=== PATIENT | female | born 1995 | race American Indian/Alaskan Native ===

== ENCOUNTER 2017-05-05 03:45 | Emergency (ER) | payer MEDICAID ==
[2017-05-05 04:25] VITALS: BP 109/68
== END 2017-05-05 04:24 | disposition left against medical advice (07) ==
LOC: ED 03:45
DX: K08.89 Other specified disorders of teeth and supporting structures (principal); N89.8 Other specified noninflammatory disorders of vagina; Z53.21 Procedure and treatment not carried out due to patient leaving prior to being seen by health care provider

== ENCOUNTER 2018-04-05 21:48 | Outpatient (CLI) | payer SELFPAY ==
[2018-04-05] MEDS ORDERED: LACTATED RINGERS 1,000 ML ONE (23:57)
[2018-04-06 00:04] VITALS: BP 82/52
[2018-04-06] MEDS ORDERED: LACTATED RINGERS 1,000 ML IV ONE ×2 (00:19→02:56)
[2018-04-06 01:03] LABS: Bilirubin,Urine NEG (Negative); Blood,Urine NEG (Negative); Color,Urine Yellow (Yellow); Protein,Urine <15 mg/dL mg/dL (Negative); RBC,Urine < 1.0 /HPF (0.0-6.0)
[2018-04-06] MEDS ORDERED: TYLENOL PO ONE (01:27)
== END 2018-04-06 03:56 | disposition home or self-care (01) ==
LOC: TRG 21:48
PROVIDERS: ATTEND Obstetrics & Gynecology
DX: O26.892 Other specified pregnancy related conditions, second trimester (principal); R51 Headache; Z3A.22 22 weeks gestation of pregnancy
CPT/HCPCS: 81001; 96360; 96361; J7120; 96372; 96374

== ENCOUNTER 2021-01-11 13:34 | Emergency (ER) | payer MEDICAID, OTHER ==
[2021-01-11 13:53] VITALS: BP 99/69
--- NOTE | 2021-01-11 15:36 | Emergency Department Report ---
Chief Complaint: Vaginal Bleeding Stated Complaint: MISCARRIAGE Time Seen by Provider: 01/11/21 15:33 - HPI History of Present Illness: The patient was evaluated in the emergency department for symptoms described in the history of present illness. He/she was evaluated in the context of the global COVID-19 pandemic, which necessitated consideration that the patient might be at risk for infection with the virus that causes COVID-19. Institutional protocols and algorithms that pertain to the evaluation of patients at risk for COVID-19 are in a state of rapid change based on information released by regulatory bodies including the CDC and federal and state organizations. These policies and algorithms were followed during the patient's care in the emergency department. Please note that these policies, procedures and recommendations changed on a rapid basis. 25-year-old presents to the emergency room requesting a work excuse. Patient states that she had a miscarriage on Monday and was out Monday and of last week. Patient denies any pain no vaginal bleeding no vaginal discharge no pelvic pain no chest pain no shortness of breath no fever chills. She did not follow-up in an emergency room or [facility]. - Exam Vital Signs: Vital Signs 01/11/21 13:48 Pulse Rate 72 Respiratory 16 Rate Blood Pressure 99/69 [Left] O2 Sat by Pulse 100 Oximetry Physical Exam: General: Awake, appropriately interactive, no acute distress. Neck: Supple. Full range of motion intact. Cardiovascular: Normal peripheral perfusion. Pulmonary: No respiratory distress. Patient is speaking normally without use of accessory muscles. Skin: No apparent rashes or lesions. Neurological: No facial asymmetry. Speech is clear. Follows commands. Patient is alert and oriented. Musculoskeletal: Full range of motion, no crepitus. Able to bear weight and ambulate without difficulty. Distal neurovascular and motor/sensory function is intact. Psych: Cooperative. Appropriate mood and affect. MSE screening note: Focused history and physical exam performed. Due to findings the following was ordered: 25-year-old presents to the emergency room requesting a work excuse. Patient states that she had a miscarriage on Monday and was out Monday and of last week. Patient denies any pain no vaginal bleeding no vaginal discharge no pelvic pain no chest pain no shortness of breath no fever chills. She did not follow-up in an emergency room or [facility]. ED Disposition for MSE Is pt being admited?: No Does the pt Need Aspirin: No Condition: Stable Additional Instructions: Please in the future you must follow-up with your primary care provider for a work excuse. The emergency room is not for work excuses we are here for emergency evaluation and treatments. Referrals: [facility] [Provider Group] - 3-5 Days Forms: Work/School Release Form(ED)
== END 2021-01-11 17:00 | disposition left against medical advice (07) ==
LOC: ED 13:34
DX: Z02.79 Encounter for issue of other medical certificate (principal)
CPT/HCPCS: 99281

== ENCOUNTER 2021-03-23 22:28 | Emergency (ER) | payer OTHER ==
[2021-03-23 23:40] LABS: Bilirubin,Urine NEG (Negative); Blood,Urine NEG (Negative); Color,Urine Yellow (Yellow); Mucus,Urine FEW /HPF; Protein,Urine <15 mg/dL mg/dL (Negative); Urobilinogen,Urine < 2.0 mg/dL (<2.0)
--- NOTE | 2021-03-23 23:40 | Emergency Department Report ---
<ELIO RUGGIERO - Last Filed: 03/23/21 23:39> ED HPI - General Chief complaint: Vaginal Bleeding Stated complaint: VAGINAL BLEEDING Time Seen by Provider: 03/23/21 22:31 Source: patient Mode of arrival: Ambulatory Limitations: No Limitations - Related Data Previous Rx's Medication Instructions Recorded Last Taken Type Diclofenac Sodium [Voltaren] 100 gm TP Q6H #1 gel..gram. 01/28/18 Unknown Rx Nitrofurantoin Monohyd/M-Cryst 100 mg PO BID #14 capsule 01/28/18 Unknown Rx [Macrobid 100 mg Capsule] Allergies Allergy/AdvReac Type Severity Reaction Status Date / Time No Known Allergies Allergy Verified 03/23/21 22:33 ED Past Medical Hx - Past Medical History Hx Hypertension: No Hx Diabetes: No Hx Deep Vein Thrombosis: No Hx Renal Disease: No Hx Sickle Cell Disease: No Hx Seizures: No Hx Asthma: Yes (childhood) Hx HIV: No - Surgical History Past Surgical History?: No - Social History Smoking Status: Never Smoker - Medications Home Medications: Home Medications Medication Instructions Recorded Confirmed Last Taken Type Diclofenac Sodium [Voltaren] 100 gm TP Q6H #1 gel..gram. 01/28/18 Unknown Rx Nitrofurantoin Monohyd/M-Cryst 100 mg PO BID #14 capsule 01/28/18 Unknown Rx [Macrobid 100 mg Capsule] ED Physical Exam - General Limitations: No Limitations ED Course - Reevaluation(s) Reevaluation #1: 03/23/21 23:39 Labs and ultrasound ordered. Old records reviewed. ED Disposition Clinical Impression: Threatened miscarriage in early Disposition: 01 HOME / SELF CARE / HOMELESS Condition: Stable Instructions: Vaginal Bleeding During , First Trimester, Threatened Miscarriage, Vaginal Bleeding During , Third Trimester Additional Instructions: You were evaluated emergency department today for vaginal bleeding evaluation suggest that you still have a viable at 10 weeks and your quant is over 73,000. Please follow-up with your [facility]CEL [facility]PER within 2 days for reevaluation of this issue refrain from strenuous activity or traumatic events involving this area Referrals: PRIMARY CARE, [Primary Care Provider] - 3-5 Days [facility] [Provider Group] - 3-5 Days <EDUAR LÓPEZ - Last Filed: 03/24/21 04:39> ED HPI - History of Present Illness Initial comments: 25-year-old female who suspects been several weeks presents emerged department complaining of vaginal bleeding with some pelvic discomfort and 6 for the evaluation of her . She is not yet follow-up with an [facility] WR[facility] reports no prior complications with her history she reports no traumatic events. No hematuria no vaginal discharge no chest pain no palpitation no shortness of breath. MD Complaint: vaginal bleeding Radiation: suprapubic Severity: mild, moderate Quality: aching, dull Consistency: constant Improves with: none Worsens with: none Associated symptoms: vaginal bleeding Vaginal bleeding: light :: Yes OB History - Current : no complications OB History - Previous Pregnancies: no complications ED Review of Systems ROS: Stated complaint: VAGINAL BLEEDING Other details as noted in HPI Comment: All other systems reviewed and negative ED Physical Exam - General General appearance: alert, in no apparent distress - Head Head exam: Present: atraumatic, normocephalic - Eye Eye exam: Present: normal appearance, PERRL, EOMI Pupils: Present: normal accommodation - ENT ENT exam: Present: mucous membranes moist - Neck Neck exam: Present: normal inspection - Respiratory Respiratory exam: Present: normal lung sounds bilaterally. Absent: respiratory distress - Cardiovascular Cardiovascular Exam: Present: regular rate, normal rhythm. Absent: systolic murmur, diastolic murmur, rubs, gallop - GI/Abdominal GI/Abdominal exam: Present: soft, normal bowel sounds - Extremities Exam Extremities exam: Present: normal inspection - Back Exam Back exam: Present: normal inspection - Neurological Exam Neurological exam: Present: alert, oriented X3 - Psychiatric Psychiatric exam: Present: normal affect, normal mood - Skin Skin exam: Present: warm, dry, intact, normal color. Absent: rash ED Course Vital Signs 03/23/21 22:30 Temperature 98.4 F Pulse Rate 77 Respiratory 17 Rate Blood Pressure 111/55 [Right] O2 Sat by Pulse 100 Oximetry ED Medical Decision Making - Lab Data Result diagrams: 03/23/21 23:19 Lab Results 03/23/21 03/23/21 03/23/21 Range/Units 23:19 23:19 Unknown WBC 9.3 (4.5-11.0) K/mm3 RBC 3.80 (3.65-5.03) M/mm3 Hgb 10.9 (10.1-14.3) gm/dl Hct 33.7 (30.3-42.9) % MCV 89 (79-97) fl MCH 29 (28-32) pg MCHC 33 (30-34) % RDW 14.2 (13.2-15.2) % Plt Count 224 (140-440) K/mm3 Lymph % (Auto) 30.5 (13.4-35.0) % [place] % (Auto) 8.2 H (0.0-7.3) % Eos % (Auto) 2.3 (0.0-4.3) % Baso % (Auto) 0.2 (0.0-1.8) % Lymph # (Auto) 2.8 (1.2-5.4) K/mm3 [place] # (Auto) 0.8 (0.0-0.8) K/mm3 Eos # (Auto) 0.2 (0.0-0.4) K/mm3 Baso # (Auto) 0.0 (0.0-0.1) K/mm3 Seg Neutrophils % 58.8 (40.0-70.0) % Seg Neutrophils # 5.5 (1.8-7.7) K/mm3 HCG, Quant 59940 H (0-4) mIU/mL Urine Color Yellow (Yellow) Urine Turbidity Clear (Clear) Urine pH 6.0 (5.0-7.0) Ur Specific [place] 1.024 (1.003-1.030) Urine Protein <15 mg/dl (Negative) mg/dL Urine Glucose (UA) Neg (Negative) mg/dL Urine Ketones Neg (Negative) mg/dL Urine Blood Neg (Negative) Urine Nitrite Neg (Negative) Urine Bilirubin Neg (Negative) Urine Urobilinogen < 2.0 (<2.0) mg/dL Ur Leukocyte Esterase Tr (Negative) Urine WBC (Auto) 22.0 H (0.0-6.0) /HPF Urine RBC (Auto) 4.0 (0.0-6.0) /HPF U Epithel Cells (Auto) 2.0 (0-13.0) /HPF Urine Mucus Few /HPF - Radiology Data Radiology results: report reviewed [facility] [address] [place] [address] Ultrasound Report Signed Patient: NADYA FERRARI MR#: [id number] : 1995 Acct:[id number] Age/Sex: 25 / F ADM Date: 03/23/21 Loc: ED Attending Dr: Ordering Physician: TOMMY BETANCOURT Date of Service: 03/23/21 Procedure(s): US OB <= 14 weeks fetus Accession Number(s): [id number] cc: TOMMY BETANCOURT ULTRASOUND OBSTETRIC REASON FOR EXAM: Vaginal bleeding TECHNIQUE: Transabdominal and transvaginal ultrasound was performed to evaluate a first trimester . COMPARISON: None available. FINDINGS: FINDINGS: The pole, yolk sac, and gestational sac are normal in appearance. [place]-rump length: 31.4 mm. This corresponds with a gestational age of 10 weeks 0 days. heart rate: 172 bpm Perigestational hemorrhage: No evidence of perigestational hemorrhage on the provided images. MATERNAL FINDINGS: The uterus demonstrates an otherwise unremarkable sonographic appearance. The right ovary demonstrates a normal sonographic appearance. The left ovary demonstrates a normal sonographic appearance. Cul-de-sac: There is no free fluid. IMPRESSION: Viable intrauterine . Gestational age is 10 weeks 0 days by ultrasound. Recommend clinical screening and ultrasound follow-up in the second trimester to screen for anomalies. Signer Name: Keyonna Gibson MD Signed: 03/24/2021 2:13 AM Workstation Name: [id number] Transcribed By: ZHENG Dictated By: KEYONNA GIBSON MD Electronically Authenticated By: KEYONNA GIBSON MD Signed Date/Time: 03/24/21212 DD/ 1 TD/TT: Print Cancel - Medical Decision Making This patient presents with vaginal bleeding in the first trimester, differential diagnosis includes ectopic , IUP, month threatened/inevitable , along with a completed . Patient is HDS and without a history of coagulopathy or infectious symptoms. The ultrasound does reveal an IUP at 10 weeks with an elevated hCG quant Based on exam history and ED work-up patient presentation is not consistent with an ectopic , life-threatening coagulopathy, trauma, serious bacterial infection, central process or other emergency Critical care attestation.: If time is entered above; I have spent that time in minutes in the direct care of this critically ill patient, excluding procedure time. ED Disposition Is pt being admited?: No Does the pt Need Aspirin: No
[2021-03-24 00:07] LABS: Basophils % (Auto) 0.2 % (0.0-1.8); Eosinophils # (Auto) 0.2 K/mm3 (0.0-0.4); Eosinophils % (Auto) 2.3 % (0.0-4.3); Hematocrit 33.7 % (30.3-42.9); Hemoglobin 10.9 gm/dl (10.1-14.3); Lymphocytes # (Auto) 2.8 K/mm3 (1.2-5.4); Lymphocytes % (Auto) 30.5 % (13.4-35.0); Mean Corpuscular HGB Conc 33 % (30-34); Mean Corpuscular Volume 89 fl (79-97); Monocytes # (Auto) 0.8 K/mm3 (0.0-0.8); Monocytes % (Auto) 8.2 % (0.0-7.3); Platelet Count 224 K/mm3 (140-440); Red Cell Distribution Width 14.2 % (13.2-15.2)
--- NOTE | 2021-03-24 02:18 | Ultrasound Report ---
ULTRASOUND OBSTETRIC REASON FOR EXAM: Vaginal bleeding TECHNIQUE: Transabdominal and transvaginal ultrasound was performed to evaluate a first trimester pre gnancy. COMPARISON: None available. FINDINGS: FINDINGS: The pole, yolk sac, and gestational sac are normal in appearance. [place]-rump length: 31.4 mm. This corresponds with a gestational age of 10 weeks 0 days. heart rate: 172 bpm Perigestational hemorrhage: No evidence of perigestational hemorrhage on the provided images. MATERNAL FINDINGS: The uterus demonstrates an otherwise unremarkable sonographic appearance. The right ovary demonstrates a normal sonographic appearance. The left ovary demonstrates a normal sonographic appearance. Cul-de-sac: There is no free fluid. IMPRESSION: Viable intrauterine . Gestational age is 10 weeks 0 days by ultrasound. Recommend clinical s creening and ultrasound follow-up in the second trimester to screen for anomalies. Signer Name: Cecil Gibson MD Signed: 03/24/2021 2:13 AM Workstation Name: [id number]
[2021-03-24 04:41] VITALS: BP 111/75
== END 2021-03-24 04:44 | disposition home or self-care (01) ==
LOC: ED 22:28
DX: O20.0 Threatened abortion (principal); J45.909 Unspecified asthma, uncomplicated; Z3A.10 10 weeks gestation of pregnancy; Z79.899 Other long term (current) drug therapy
CPT/HCPCS: 36415; 76801; 81001; 84702; 85025; 87086; 99284

== ENCOUNTER 2021-03-31 16:36 | Emergency (ER) | payer OTHER ==
[2021-03-31 17:20] VITALS: BP 127/42
--- NOTE | 2021-03-31 19:07 | Emergency Department Report ---
ED HPI - General Chief complaint: Vaginal Bleeding Stated complaint: 11 WKS PREG AND BLEEDING ALL YESTERDAY, CRAMPS Time Seen by Provider: 03/31/21 18:33 Source: patient Mode of arrival: Ambulatory Limitations: No Limitations - History of Present Illness Initial comments: 25-year-old female presents to the ER today with complaints of vaginal bleeding and . Patient states that the bleeding started last night. She states that bleeding was heavier than a typical period with clots. She did not have the use of panty liner, pad nor tampon. She states that the bleeding has slowed down, she only notices it when she wipes after she urinates. She reports lower abdominal cramping. She denies any UTI symptoms, fever or chills. Patient states that she is about 11 weeks . Her last menstrual cycle was sometime in the beginning of December 2020. Patient states that she was here for similar symptoms a few days ago. She sta tucker that she was told the baby was fine after having an ultrasound. She states after leaving the ER her bleeding had stopped. She has not seen [facility] yet, she states her first appointment is in April. She is G3, P2 Ab0. Reviewed patient visit from March 23, 2021. [place] the time was [address] and her OB ultrasound showed a viable IUP measuring at 10 weeks with a heart rate of 172, no other abnormalities on ultrasound. Urine culture was negative Complaint: vaginal bleeding -: Sudden, Last night - Related Data Previous Rx's Medication Instructions Recorded Last Taken Type Diclofenac Sodium [Voltaren] 100 gm TP Q6H #1 gel..gram. 01/28/18 Unknown Rx Nitrofurantoin Monohyd/M-Cryst 100 mg PO BID #14 capsule 01/28/18 Unknown Rx [Macrobid 100 mg Capsule] cephALEXin [Keflex] 500 mg PO Q8HR #30 capsule 03/31/21 Unknown Rx Allergies Allergy/AdvReac Type Severity Reaction Status Date / Time No Known Allergies Allergy Verified 03/31/21 17:20 ED Review of Systems ROS: Stated complaint: 11 WKS PREG AND BLEEDING ALL YESTERDAY, CRAMPS Other details as noted in HPI ED Past Medical Hx - Past Medical History Hx Hypertension: No Hx Diabetes: No Hx Deep Vein Thrombosis: No Hx Renal Disease: No Hx Sickle Cell Disease: No Hx Seizures: No Hx Asthma: Yes (childhood) Hx HIV: No - Social History Smoking Status: Never Smoker - Medications Home Medications: Home Medications Medication Instructions Recorded Confirmed Last Taken Type Diclofenac Sodium [Voltaren] 100 gm TP Q6H #1 gel..gram. 01/28/18 Unknown Rx Nitrofurantoin Monohyd/M-Cryst 100 mg PO BID #14 capsule 01/28/18 Unknown Rx [Macrobid 100 mg Capsule] cephALEXin [Keflex] 500 mg PO Q8HR #30 capsule 03/31/21 Unknown Rx ED Physical Exam - General Limitations: No Limitations ED Course Vital Signs 03/31/21 03/31/21 17:18 21:19 Temperature 98.4 F Pulse Rate 81 60 Respiratory 16 15 Rate Blood Pressure 127/42 [Left] O2 Sat by Pulse 100 100 Oximetry ED Medical Decision Making - Lab Data Result diagrams: 03/31/21 19:19 03/31/21 19:19 - Radiology Data Radiology results: report reviewed Patient: NADYA FERRARI MR#: [id number] : 1995 Acct:[id number] Age/Sex: 25 / F ADM Date: 03/31/21 Loc: ED Attending Dr: Ordering Physician: TASIA STEPHEN Date of Service: 03/31/21 Procedure(s): US OB transvaginal Accession Number(s): [id number] cc: TASIA STEPHEN ULTRASOUND OBSTETRIC Indication: vag bleed with clots/11 weeks preg Findings: There is a single, living intrauterine . [place]-rump length = 4.0 cm = 10 weeks, 6 day(s). heart rate is 135 beats per minute. The ovaries are normal. There is no free fluid. Impression: Single, living intrauterine with estimated sonographic age of 10 weeks, 6 day(s). Signer Name: Seven Guzman MD Signed: 03/31/2021 8:25 PM Workstation Name: [id number] Transcribed By: Dictated By: Seven Guzman MD Electronically Authenticated By: Seven Guzman MD Signed Date/Time: 03/31/212024 DD/ 22 TD/TT: - Medical Decision Making All labs reviewed --CBC and CMP unremarkable. [place] [address], quantitative hCG from 03/23/2020 was [id number] but ultrasound today shows viable IUP measuring 10 weeks and 6 days with a heart rate of 135. No other abnormality seen on ultrasound. Rh type is positive, therefore no indication for RhoGam at this time. Her urinalysis is concerning for UTI Patient is not toxic not ill-appearing and not in any significant distress. She has a nonsurgical abdominal exam. She is neurologically intact with a normal gait. She is hemodynamically stable. Discussed all results with patient. Informed her at this time I think is okay with the . Recommend she keep her appointment with [facility] for next month but she understands to return to the ER if anything worsens. Patient expressed understanding of all instructions and agree with plan. Patient stable at time of discharge Critical care attestation.: If time is entered above; I have spent that time in minutes in the direct care of this critically ill patient, excluding procedure time. ED Disposition Clinical Impression: Threatened miscarriage, Yeast infection of the vagina, UTI (urinary tract infection) Disposition: HOME / SELF CARE / HOMELESS Is pt being admited?: No Does the pt Need Aspirin: No Condition: Stable Instructions: Threatened Miscarriage, Vaginal Yeast Infection, Adult, Urinary Tract Infection, Adult, [id number] Additional Instructions: I recommend tylenol as needed for pain. Urinalysis suggest that you have a UTI as well as a yeast infection. You will be prescribed Keflex which you need to start taking for UTI and also recommend that you do the 7-day Monistat [id number] for yeast infection. I do recommend that you keep your appointment with your [facility]ER[facility]. Return to the ER if at any point your symptoms worsens. Prescriptions: cephALEXin [Keflex] 500 mg PO Q8HR #30 capsule Referrals: PRIMARY CARE, [Primary Care Provider] - 3-5 Days Forms: Work/School Release Form(ED) Time of Disposition: 21:08
[2021-03-31 19:34] LABS: Basophils # (Auto) 0.1 K/mm3 (0.0-0.1); Basophils % (Auto) 0.8 % (0.0-1.8); Eosinophils # (Auto) 0.2 K/mm3 (0.0-0.4); Eosinophils % (Auto) 2.8 % (0.0-4.3); Hematocrit 34.6 % (30.3-42.9); Hemoglobin 11.3 gm/dl (10.1-14.3); Lymphocytes # (Auto) 2.3 K/mm3 (1.2-5.4); Lymphocytes % (Auto) 26.4 % (13.4-35.0); Mean Corpuscular HGB Conc 33 % (30-34); Mean Corpuscular Volume 89 fl (79-97); Monocytes # (Auto) 0.7 K/mm3 (0.0-0.8); Monocytes % (Auto) 8.3 % (0.0-7.3); Platelet Count 281 K/mm3 (140-440); Red Blood Count 3.91 M/mm3 (3.65-5.03); Red Cell Distribution Width 14.2 % (13.2-15.2)
[2021-03-31 19:50] LABS: Alanine Aminotransferase 29 units/L (7-56); Albumin 3.8 g/dL (3.9-5); Blood Urea Nitrogen 7 mg/dL (7-17); Calcium 9.2 mg/dL (8.4-10.2); Hemolysis Index 12
[2021-03-31 19:53] LABS: BUN/Creatinine Ratio 18
[2021-03-31] MEDS ORDERED: ACETAMINOPHEN 500 MG TAB PO ONE (20:26)
--- NOTE | 2021-03-31 20:29 | Ultrasound Report ---
ULTRASOUND OBSTETRIC Indication: vag bleed with clots/11 weeks preg Findings: There is a single, living intrauterine . [place]-rump length = 4.0 cm = 10 weeks, 6 day(s). heart rate is 135 beats per minute. The ovaries are normal. There is no free fluid. Impression: Single, living intrauterine with estimated sonographic age of 10 weeks, 6 day(s). Signer Name: Seven Guzman MD Signed: 03/31/2021 8:25 PM Workstation Name: [id number]
[2021-03-31 20:45] LABS: Bilirubin,Urine NEG (Negative); Blood,Urine NEG (Negative); Color,Urine Yellow (Yellow); Mucus,Urine 3+ /HPF; Protein,Urine <15 mg/dL mg/dL (Negative); Urobilinogen,Urine < 2.0 mg/dL (<2.0)
== END 2021-03-31 21:15 | disposition home or self-care (01) ==
LOC: ED 16:36
DX: O20.0 Threatened abortion (principal); O26.891 Other specified pregnancy related conditions, first trimester; Z3A.12 12 weeks gestation of pregnancy; B37.3 Candidiasis of vulva and vagina; N39.0 Urinary tract infection, site not specified
CPT/HCPCS: 36415; 76817; 80053; 81001; 84702; 85025; 86900; 86901; 87086; 99284